=== PATIENT | male | born 1985 | race Caucasian/White ===

== ENCOUNTER 2020-07-30 21:22 | Emergency (ER) | payer BC, SELFPAY ==
[2020-07-30] MEDS ORDERED: Naproxen 500 MG TAB ONE (22:28)
== END 2020-07-30 23:25 | disposition home or self-care (01) ==
LOC: CSHERS 21:22
DX: S92.424A Nondisplaced fracture of distal phalanx of right great toe, initial encounter for closed fracture (principal); S80.02XA Contusion of left knee, initial encounter; S60.221A Contusion of right hand, initial encounter; R51.9 Headache, unspecified; I10 Essential (primary) hypertension; F17.210 Nicotine dependence, cigarettes, uncomplicated; Y09 Assault by unspecified means

== ENCOUNTER 2024-12-28 16:51 | Emergency (ER) | payer SELFPAY ==
[2024-12-28] MEDS ORDERED: levETIRAcetam 500 MG (5 mL) VIAL ONE (17:33)
[2024-12-28 17:48] LABS: #Basophils 0.07 10x3/uL (0.0-0.2); #Eosinophils 0.17 10x3/uL (0.0-0.5); #Monocytes 0.42 10x3/uL (0.0-1.1); #Neutrophils 3.95 10x3/uL (1.5-8.4); %Basophils 1.0 % (0.0-2.0); %Eosinophils 2.5 % (0.0-6.0); %Lymphocytes 30.7 % (18.0-47.0); %Monocytes 6.3 % (0.0-10.0); %Neutrophils 59.4 % (40.0-75.0); Hematocrit 45.6 % (38.8-50.0); Hemoglobin 15.1 g/dL (13.5-17.5); Mean Corpuscular Hemoglobin 29.3 pg (27.0-33.0); Mean Corpuscular Volume 88.5 fL (81.2-95.1); Platelet Count 225 10x3/uL (150-450); Red Blood Cell (RBC) Count 5.15 10x6/uL (4.32-5.72); White Blood Cell (WBC) Count 6.67 10x3/uL (3.5-10.5)
[2024-12-28 18:05] LABS: ALT (SGPT) 13 U/L (Less than 45); AST (SGOT) 22 U/L (11-34); Albumin 5.2 g/dL (3.1-4.5); Alkaline Phosphatase 65 U/L (40-110); Anion Gap 15 mmol/L (10-20); BUN (Urea Nitrogen) 12 mg/dL (8.9-20.6); Bilirubin, Total 0.6 mg/dL (0.3-1.2); Calc. Creatinine Clearance 0 mL/min (70-130); Calcium 9.6 mg/dL (7.8-10.44); Carbon Dioxide 23 mmol/L (22-29); Chloride 104 mmol/L (98-107); Globulin 2.9 g/dL (2.4-3.5); Glucose 107 mg/dL (70-105); Potassium 3.9 mmol/L (3.5-5.1); Sodium 138 mmol/L (136-145)
[2024-12-28 18:08] LABS: Troponin I Less than 0.010 ng/mL (< 0.028)
== END 2024-12-28 19:07 | disposition home or self-care (01) ==
LOC: CSHERS 16:51
DX: F41.9 Anxiety disorder, unspecified (principal); R56.9 Unspecified convulsions; Z76.0 Encounter for issue of repeat prescription; F17.210 Nicotine dependence, cigarettes, uncomplicated; I10 Essential (primary) hypertension
CPT/HCPCS: 71045; 80053; 80177; 84443; 84484; 85025; 85379; 93005; 96374; J1953